=== PATIENT | male | born 1985 | race Caucasian/White ===

== ENCOUNTER 2021-03-01 12:38 | Emergency (ER) | payer BC, OTHER ==
[~2021-03-01] VITALS: Ht 185.4 cm; Wt 111.1 kg
[~2021-03-01 12:38] MED LIST: ALPR1TAB2 PO
--- NOTE | 2021-03-01 12:50 | NUR ---
Patient to ER bed hallway to gown for evaluation. Side rails up.
--- NOTE | 2021-03-01 12:55 | NUR ---
Pt bib EMS from home with c/o lower back pain 10/10 radiating down leg x2 hours. Reports h/o sciatica and ruptured disc. V/S stable, no acute distress noted.
[2021-03-01 12:56] VITALS: BP_SYST 140
--- NOTE | 2021-03-01 13:24 | NUR ---
ER Dr. Johnson at bedside examining patient.
[2021-03-01] MEDS ORDERED: CYCLOBENZAPRINE HCL 10 MG TABLET (FLEXERIL) PO ONE (13:45)
[2021-03-01] MEDS ORDERED: oxyCODONE HCL 5 MG TABLET PO ONE (13:45)
[2021-03-01] MEDS ORDERED: GABAPENTIN 300 MG CAPSULE PO ONE (13:45)
[2021-03-01] MEDS ORDERED: OXYIR5 PO (13:59)
[2021-03-01] MEDS ORDERED: HYDROcodone/ACETAMIN 10-325 MG TAB PO ONE (14:00)
--- NOTE | 2021-03-01 15:45 | NUR ---
Patient given written and verbal discharge instructions and verbalizes understanding. ER MD discussed with patient the results and treatment provided. Patient in stable condition. ID arm band removed. Rx of oxycodone given. Patient educated on pain management and to follow up with PMD. Pain Scale 0. Opportunity for questions provided and answered. Medication side effect fact sheet provided.
[2021-03-01 16:09] VITALS: BP_SYST 140
== END 2021-03-01 15:45 | disposition home or self-care (01) ==
LOC: SED 12:38
DX: M51.26 Other intervertebral disc displacement, lumbar region (principal); G89.29 Other chronic pain; F41.9 Anxiety disorder, unspecified; Z79.899 Other long term (current) drug therapy
CPT/HCPCS: 99284